=== PATIENT | female | born 1985 | race Caucasian/White ===

== ENCOUNTER 2019-06-02 17:35 | Outpatient (REF) | payer OTHER, SELFPAY ==
[2019-06-04 12:15] LABS: Chlamydia Result Negative (Negative); GC Result Negative (Negative)
== END 2019-06-02 17:55 ==
LOC: NCHCN 17:35
PROVIDERS: PCP Family Medicine; Visit Provider Registered Nurse
DX: R30.0 Dysuria (principal); Z11.3 Encounter for screening for infections with a predominantly sexual mode of transmission
CPT/HCPCS: 87077; 87491; 87591; 87086; 87186

== ENCOUNTER 2020-01-30 18:31 | Outpatient (REF) | payer OTHER, SELFPAY ==
[2020-02-03 15:26] LABS: Patient Race White; SARS-CoV-2 RNA Undetected (Undetected); SARS-CoV-2 Specimen Source Nasal
== END 2020-01-30 18:51 ==
LOC: NCHCN 18:31
PROVIDERS: PCP Family Medicine; Visit Provider Family Medicine
DX: R05 Cough (principal)
CPT/HCPCS: U0003

== ENCOUNTER 2021-05-02 16:53 | Outpatient (REF) | payer BC, SELFPAY ==
[2021-05-04 16:09] LABS: COVID-19 RT-PCR UVMMC Result Negative (Negative)
== END 2021-05-02 16:54 | disposition home or self-care (01) ==
LOC: NCHCN 16:53
PROVIDERS: PCP Family Medicine; Visit Provider Family Medicine
DX: Z20.822 Contact with and (suspected) exposure to COVID-19 (principal)
CPT/HCPCS: U0003

== ENCOUNTER 2021-12-23 15:10 | Outpatient (REF) | payer BC, SELFPAY ==
--- NOTE | 2021-12-23 14:45 | PAPFT_PTH ---
PATIENT: Jessica John LOC: [facility]#:[id number] AGE/SX: 36/F ROOM: RE12/23/[address]: Yaniqeu Young : 1985 BED: DIS: 12/23/2021 SPEC #: [id number] RECD: 12/26/21 13:13 STATUS: CALDERON RERayo #: [id number] CEE: 12/23/21 14:[address]: Yanique Young DEPT: [facility], [facility] Cytology RECD BY: Shira Ramos Tissues: 1 - CX/ENDOCX FOR PAP SMEARS Procedures: PAP THIN PREP/[facility] Screening HPV DNA PROBE Comments: [id number] (CHLAMYDIA/GC)
[2021-12-27 13:45] LABS: Chlamydia Result Negative (Negative); GC Result Negative (Negative)
== END 2021-12-23 15:11 | disposition home or self-care (01) ==
LOC: NCHCN 15:10
PROVIDERS: PCP Family Medicine; Visit Provider Family Medicine
DX: Z00.00 Encounter for general adult medical examination without abnormal findings (principal); Z11.3 Encounter for screening for infections with a predominantly sexual mode of transmission; Z12.4 Encounter for screening for malignant neoplasm of cervix; Z11.51 Encounter for screening for human papillomavirus (HPV)
CPT/HCPCS: 87491; 87591; 88142; 87624